=== PATIENT | female | born 1990 | race Two or more races ===

== ENCOUNTER 2024-07-09 14:37 | Emergency (ER) | payer MEDICAID, SELFPAY ==
[2024-07-09 15:19] VITALS: BP 143/85; PULSE 86; RESP 16; TEMP 37; O2SAT 99
--- NOTE | 2024-07-09 15:26 | XR_ITS ---
Examination: Complete OB ultrasound, less than 14 weeks, transabdominal Date and time of exam: July 09, 2024 1633 hrs. Indications: Vaginal bleeding beginning 9 days ago at Technique: Obstetrical ultrasound images less than 14 weeks performed via transabdominal imaging Findings: Uterus 9.2 x 5.4 x 6.3 cm Intrauterine gestational sac 2.8 cm corresponds to 7 week 6 day gestational age No pole No cardiac activity Right ovary 2.9 cm arterial flow Left ovary 3.4 cm arterial flow 10 mm follicular cyst Impression: Empty intrauterine gestational sac corresponding to 7 week 6 day gestational age No pole, recommend transvaginal pelvic sonography follow-up
--- NOTE | 2024-07-09 15:26 | PD.EDRME ---
Rapid Medical Screening Exam [facility] [place] Arrival date/time: 07/09/24 14:37 34-year-old female with no known medical history presents to the emergency room with a chief complaint of lower pelvic pain and vaginal spotting. Patient is currently a G5, P4. Patient denies any dysuria or hematuria. I have greeted and performed a focused initial assessment of this patient. A comprehensive ED assessment and evaluation of the patient, analysis of all test results, and completion of the medical decision making process will be conducted by additional ED providers. Chief Complaint: Abdominal Pain Vital signs: Vital Signs Temperature 98.6 F 07/09/24 15:19 Pulse Rate 86 07/09/24 15:19 Respiratory Rate 16 07/09/24 15:19 Blood Pressure 143/85 H 07/09/24 15:19 Pulse Oximetry (%) 99 07/09/24 15:19 Oxygen Delivery Method Room Air 07/09/24 15:19 Vital signs reviewed by provider: Yes
[2024-07-09 16:11] LABS: Collection Type, Urine Clean Catch; RBC,Urine 0 /hpf (0-3); Squamous Epithelial Cell,Urine 0 /hpf (0-5)
[2024-07-09 16:13] LABS: Basophils # (Auto) 0.1 Thou/mm3 (0.0-0.2); Basophils % (Auto) 1 % (0-2.5); Eosinophils # (Auto) 0.3 Thou/mm3 (0.0-0.5); Eosinophils % (Auto) 4 % (0-10); Hematocrit 42.3 % (36.0-46.0); Hemoglobin 14.8 g/dL (12.0-16.0); Immature Granulocytes % (Auto) 0 % (0-0); Immature Granulocytes Auto 0.03 Thou/mm3 (0.00-0.00); Lymphocytes # (Auto) 1.9 Thou/mm3 (1.0-4.8); Lymphocytes % (Auto) 22 % (10-50); Mean Corpuscular Hemoglobin 31.3 pg (25.0-35.0); Mean Corpuscular Volume 89 fL (80-100); Monocytes # (Auto) 0.6 Thou/mm3 (0.0-0.8); Monocytes % (Auto) 7 % (0-12); Neutrophils # (Auto) 5.7 Thou/mm3 (1.8-7.7); Neutrophils % (Auto) 66 % (37-80); Nucleated Red Blood Cell % 0 /100 WBC (0); Platelet Count 287 Thou/mm3 (140-440); Red Blood Count 4.73 Miln/mm3 (4.00-5.20); White Blood Count 8.5 Thou/mm3 (3.6-11.0)
[2024-07-09 16:26] LABS: Bilirubin,Urine Negative (Negative); Blood,Urine 1+ (Negative); Clarity,Urine Clear (Clear/Hazy); Color,Urine Colorless (Lt Yel-Yel); Glucose, Urine Negative (Negative); Ketones,Urine Negative (Negative); Leukocyte Esterase,Urine Negative (Negative); Nitrite,Urine Negative (Negative); PH,Urine 6.5 (5.0-7.0); Protein,Urine Negative (Neg - Trace); Specific Gravity,Urine 1.005 (1.001-1.035); Urobilinogen,Urine Negative mg/dL (0.0-1.0); WBC,Urine < 1 /hpf (0-5)
[2024-07-09 16:38] LABS: Alanine Aminotransferase 14 U/L (10-49); Albumin, Serum 4.7 gm/dL (3.5-5.0); Albumin/Globulin Ratio 1.7 (1.2-2.2); Alkaline Phosphatase 67 U/L (46-116); Anion Gap 11 (7-16); Aspartate Amino Transferase 17 U/L (0-34); BUN/Creatinine Ratio 14 Ratio (12-20); Bilirubin,Total 0.3 mg/dL (0.3-1.2); Blood Urea Nitrogen 10 mg/dL (9-23); Calcium 9.3 mg/dL (8.3-10.6); Calcium (Corrected) 9.3 mg/dL (8.5-10.1); Carbon Dioxide 25.1 mMol/L (20.0-31.0); Chloride 104 mMol/L (98-107); Creatinine (Component) 0.7 mg/dL (0.6-1.3); Estimated Creatinine Clearance 90.8 mL/min (>60); Globulin 2.8 gm/dL (2.3-3.5); Glucose 106 mg/dL (74-106); Osmolality,Calculated 278 (275-295); Potassium 3.6 mMol/L (3.4-5.1); Sodium 140 mMol/L (136-145); Total Protein 7.5 gm/dL (5.7-8.2); eGFR > 60 See Note
[2024-07-09 16:57] LABS: Beta HCG,Quantitative 5398 mIU/mL (<5.0)
[2024-07-09 18:27] VITALS: BP 145/84; PULSE 80; RESP 16; TEMP 36.8; O2SAT 100
--- NOTE | 2024-07-09 18:48 | EDNOTE_ITS ---
<Statement entered by Nupur Cabrera MD - 07/10/24 05:30> As co-signing physician, I was present and available for consult prn. I concur with the plan and care as documented by the midlevel provider. ED Abdominal Pain RME/HPI General Chief Complaint: Abdominal Pain Stated complaint: ABD PAIN X 9 DAYS; TYLENOL 0700 Time seen by provider: 07/09/24 18:14 Arrival date/time: 07/09/24 14:37 34-year-old female approximately 7 weeks G5, presents emergency department complaining of vaginal spotting and lower abdominal cramping that is been ongoing for over a week. Patient denies any fever, chills, vomiting, dysuria, or any other associated symptoms. Source: patient Mode of arrival: ambulatory Limitations: no limitations RME / HPI RME / HPI narrative: 07/09/24 14:37 34-year-old female with no known medical history presents to the emergency room with a chief complaint of lower pelvic pain and vaginal spotting. Patient is currently a G5, P4. Patient denies any dysuria or hematuria. I have greeted and performed a focused initial assessment of this patient. A comprehensive ED assessment and evaluation of the patient, analysis of all test results, and completion of the medical decision making process will be conducted by additional ED providers. Related Data Home Medications ?Medication ?Instructions ?Recorded ?Confirmed PNV CMB#95/FERROUS FUMARATE/FA 1 tab PO QDAY #0 tabs 0 06/20/13 07/16/19 ( MULTIVITAMINS TABLET) Allergies Allergy/AdvReac Type Severity Reaction Status Date / Time No Known Allergies Allergy Unknown Verified 07/09/24 14:41 Review of Systems Review of Systems Systems Reviewed: All systems reviewed, normal except as documented Constitutional Constitutional: Reports system reviewed and no additional complaints, except as documented, Denies body ache(s), Denies chills and Denies fever(s) Eyes Eyes: Reports system reviewed and no additional complaints, except as documented and Denies change in vision ENT Ears, Nose, Mouth, and Throat: Reports system reviewed and no additional complaints, except as documented, Denies disequilibrium, Denies dizziness, Denies sore throat and Denies vertigo Cardiovascular Cardiovascular: Reports system reviewed and no additional complaints, except as documented, Denies chest pain and Denies dyspnea Respiratory Respiratory: Reports system reviewed and no additional complaints, except as documented, Denies chest congestion, Denies cough and Denies dyspnea Gastrointestinal Gastrointestinal: Reports system reviewed and no additional complaints, except as documented, Reports abdominal pain, Denies nausea and Denies vomiting Genitourinary Genitourinary: Reports abnormal vaginal bleeding Musculoskeletal Musculoskeletal: Reports system reviewed and no additional complaints, except as documented, Denies abnormal gait and Denies arthralgias Integumentary/Breasts Skin/Breast: Reports system reviewed and no additional complaints, except as documented, Denies erythema, Denies rash and Denies wounds Neurologic Neurologic: Reports system reviewed and no additional complaints, except as documented, Denies abnormal gait, Denies disequilibrium, Denies dizziness and Denies vertigo Past Medical History Past Medical History NEUROLOGIC: Negative Neurological Disorders CARDIAC: Negative Cardiac Disorders or Congestive Heart Failure RESPIRATORY: Negative Chronic Obstructive Pulmonary Disease (COPD) GASTROINTESTINAL: Negative Gastrointestinal Disorders, Hepatitis or Colorectal Cancer GENITOURINARY: Negative Genitourinary Disorders, Renal Disease or Prostate Cancer REPRODUCTIVE: Negative Breast Cancer or Testicular Cancer MUSCULOSKELETAL: Negative Musculoskeletal Disorders or Bone Cancer ENDOCRINE: Negative Endocrine Disorders, Diabetes Mellitus Type 1 or Diabetes Mellitus Type 2 HEMATOLOGIC: Negative Blood Disorders OTHER HISTORY: Negative Autoimmune Disease, Blood Transfusions, MRSA, VRSA, Vancomycin-Resistant Enterococci, Human Immunodeficiency Virus (HIV), Chicken Pox, Measles, Mumps, Rubella ([place] Measles), Pertussis, Clostridium Difficile, Cancer, Breast Cancer, Cervical Cancer, Colorectal Cancer, Lung Cancer, Ovarian Cancer, Prostate Cancer or Testicular Cancer Family History FAMILY HISTORY: Negative Family Psychiatric Problems, Family Respiratory Disorders, Family Cardiac Disorders, Family Gastrointestinal Problems, Family Cancer, Family Surgery or Family Anesthesia Reaction Surgical History SURGICAL: Negative Endocrine Surgery, Ear Surgery, Abdominal Surgery, Nephrectomy, Joint Replacement, Neurologic Surgery, Mastectomy or Secti on Social History SMOKING STATUS: Never smoker SECOND HAND EXPOSURE: No ED Exam General Limitations: Present no limitations General appearance: Present alert and in no apparent distress Head Head exam: Present atraumatic Eye Eye exam: Present normal appearance, PERRL and EOMI ENT ENT exam: Present normal exam, normal oropharynx and mucous membranes moist Neck Neck exam: Present normal inspection, full ROM and trachea midline Chest Chest inspection: Present normal inspection and symmetric chest wall rise Respiratory Respiratory exam: Present normal lung sounds bilaterally Cardiovascular Cardiovascular exam: Present regular rate, normal rhythm and normal heart sounds Abdominal Exam Abdominal exam: Present soft and normal bowel sounds Extremities Exam Extremities exam: Present normal inspection and full ROM Back Exam Back exam: Present normal inspection and full ROM Neurological Exam Neurological exam: Present alert, oriented X3 and CN II-XII intact Psychiatric Psychiatric exam: Present normal affect and normal mood Skin Skin exam: Present warm, dry, intact and normal color Course Quality Measures none Orders Category Date Time Status US OB <= 14 weeks fetus Stat Exams 07/09/24 15:26 Completed ABO/RH Type Stat Lab 07/09/24 15:48 Completed Beta HCG,Quantitative Stat Lab 07/09/24 15:48 Completed CBC Stat Lab 07/09/24 15:48 Completed CMP [Comprehensive Metabolic Panel] Stat Lab 07/09/24 15:48 Completed UA [Urinalysis] Stat Lab 07/09/24 15:52 Completed Vital Signs Vital signs: Vital Signs Temperature 98.6 F 07/09/24 15:19 Pulse Rate 86 07/09/24 15:19 Respiratory Rate 16 07/09/24 15:19 Blood Pressure 143/85 H 07/09/24 15:19 Pulse Oximetry (%) 99 07/09/24 15:19 Oxygen Delivery Method Room Air 07/09/24 15:19 99% room air within normal limits Abdominal Pain MDM MDM Narrative MDM Narrative:: 34-year-old female approximately 7 weeks G5, presents emergency department complaining of vaginal spotting and lower abdominal cramping that is been ongoing for over a week. Patient denies any fever, chills, vomiting, dysuria, or any other associated symptoms. CBC was unremarkable for any leukocytosis with stable hemoglobin of 14.8. CMP was unremarkable for any gross electro abnormalities or elevated LFTs. Beta-hCG 5398. Ultrasound impression: Uterus 9.2 x 5.4 x 6.3 cm Intrauterine gestational sac 2.8 cm corresponds to 7 week 6 day gestational age No pole No cardiac activity Right ovary 2.9 cm arterial flow Left ovary 3.4 cm arterial flow 10 mm follicular cyst Patient appears nontoxic and is hemodynamically stable. Instructed patient to have close follow-up with [facility] and return immediately to emergency department for any increased bleeding, increased pain, vomiting, or any worsening symptom. Patient data External records reviewed:: [facility] previous records Clinical information provided by:: patient Social determinants that could affect healthcare access:: none Patient has the following chronic illnesses:: None How is presenting disease/condition affected by chronic disease/condition?: no chronic disease Evaluation data The following diagnostics were reviewed and interpreted by me:: lab results and radiology exam(s) Lab and/or radiology exams considered but not ordered:: Ordered Interpretation Summary: Interpreted by me Medications / Prescriptions Medications or Prescriptions considered but not ordered:: N/A Medication administrations:: N/A Consultations Consultation(s) initiated? (list below): No Diagnosis Differential diagnosis abdominal pain: abdominal pain, acute appendicitis, calculus of kidney, constipation, diverticulitis, endometriosis, gastroenteritis, pancreatitis, small bowel obstruction and other (Threatened , inevitable , missed ,) Most likely diagnosis given after review of the tests above:: Vaginal bleeding affecting early Admission Indicated Admission indicated?: not indicated Admission Request Was there a request for admission?: No Disposition Plan Disposition Plan: Discharge Discharge Attestation Discharge Attestation: The patient and all family members were given an opportunity to ask questions and understood the discharge instructions. Discharge instructions specifically effects, indications for sooner follow up or return to the emergency department, and the expected course of current diagnosis. Patient condition: Stable Discharge Plan Plan Patient Disposition: HOME (Self Care) Disposition Comment: Stable Prescriptions/Referrals Prescriptions/Med Rec: No Action PNV CMB#95/FERROUS FUMARATE/FA ( MULTIVITAMINS TABLET) 1 EACH tablet 1 tab PO QDAY Qty: 0 Referrals: Ranulfo Vitale MD [Primary Care Provider] - In 1 week Problem List Clinical Impression: Vaginal bleeding affecting early Patient/Caregiver Discharge Instructions Discharge Activity: activity as tolerated Education Materials: Bleeding During Early Additional Instructions: Pelvic rest until you see your [facility]. Take Tylenol as needed for pain. Drink plenty of fluids and stay hydrated. Follow-up with [facility] in 2 to 3 days. Return to the emergency department for any increased bleeding, increased pain, worsening symptoms or as needed. Print Language: Serbian Stand Alone Forms: [employer] Award Info., Patient Portal Info Letter PA/REGULATORY AFFAIRS STRATEGY SPECIALIST Supervising Physician PA/REGULATORY AFFAIRS STRATEGY SPECIALIST Supervising Physician: Dr. Cabrera
== END 2024-07-09 18:56 | disposition home or self-care (01) ==
PROVIDERS: Nurse Practitioner Family; Emergency Provider Emergency Medicine; PCP Family Medicine
DX: O20.9 Hemorrhage in early pregnancy, unspecified (principal); Z3A.01 Less than 8 weeks gestation of pregnancy
CPT/HCPCS: 36415; 76801; 80053; 81001; 84702; 85025; 86900; 86901; 99284

== ENCOUNTER 2025-02-04 12:39 | Emergency (ER) | payer MEDICAID, SELFPAY ==
[2025-02-04 12:49] VITALS: BP 155/86; PULSE 79; RESP 18; TEMP 36.9; O2SAT 99
--- NOTE | 2025-02-04 13:00 | PD.EDVAGBL ---
ED OB Contraction Preg RMI/HPI General Chief complaint: Abdominal Pain Stated complaint: ABD PAIN/HIP PAIN FOR 5 DAYS Time Seen by Provider: 02/04/25 12:58 Source: patient, RN notes reviewed and old records reviewed Arrival date/time: 02/04/25 12:39 Mode of arrival: ambulatory Limitations: no limitations RME / HPI RME / HPI Narrative: 35yof presents to ED for 5-day history of generalized pelvic cramping radiating to lower back. Patient reports vaginal bleeding the past 2 days. She had a positive home test earlier this week but was seen in clinic this morning with a negative test there. No fever, nausea/vomiting, dysuria or vaginal discharge reported. Patient took OTC pain relievers yesterday with some relief, no medications or treatments today. LMP 01/06/2025. Related Data Home Medications ?Medication ?Instructions ?Recorded ?Confirmed PNV CMB#95/FERROUS FUMARATE/FA 1 tab PO QDAY #0 tabs 06/20/13 07/16/19 ( MULTIVITAMINS TABLET) Previous Rx's ?Medication ?Instructions ?Recorded ibuprofen 600 mg tablet 600 mg PO Q6H PRN pain #20 tabs 02/04/25 methocarbamol 500 mg tablet 1,000 mg (2 x 500 mg) PO Q8H PRN 02/04/25 pain #20 tabs Allergies Allergy/AdvReac Type Severity Reaction Status Date / Time No Known Allergies Allergy Unknown Verified 02/04/25 12:44 Review of Systems Review of Systems Systems Reviewed: All systems reviewed, normal except as documented Constitutional Constitutional: Denies chills and Denies fever(s) Gastrointestinal Gastrointestinal: Denies nausea and Denies vomiting Genitourinary Genitourinary: Denies dysuria, Denies flank pain, Denies hematuria, Reports pelvic pain and Denies vaginal discharge Comments: Reports vaginal bleeding Past Medical History Surgical History OTHER SURGICAL HX: denies pshx Social History SMOKING STATUS: Never smoker SUBSTANCE USE: does not use ALCOHOL: Never Past Medical History Comments PMH COMMENT: denies pmhx ED Exam General Limitations: Present no limitations General appearance: Present alert and in no apparent distress Head Head exam: Present atraumatic and normocephalic Eye Eye exam: Present normal appearance, PERRL and EOMI ENT ENT exam: Present normal exam and mucous membranes moist Neck Neck exam: Present normal inspection and full ROM Chest Chest inspection: Present normal inspection and symmetric chest wall rise Respiratory Respiratory exam: Present normal lung sounds bilaterally; Absent respiratory distress Cardiovascular Cardiovascular exam: Present regular rate and normal rhythm Abdominal Exam Abdominal exam: Present soft; Absent distention, tenderness, guarding or rebound Extremities Exam Extremities exam: Present normal inspection and full ROM Back Exam Back exam: Absent CVA tenderness (R) or CVA tenderness (L) Neurological Exam Neurological exam: Present alert and oriented X3 Psychiatric Psychiatric exam: Present normal affect and normal mood Skin Skin exam: Present warm, dry, intact and normal color Course Quality Measures none Orders Category Date Time Status Beta HCG,Quantitative Stat Lab 02/04/25 13:15 Completed CBC Stat Lab 02/04/25 13:15 Completed CMP [Comprehensive Metabolic Panel] Stat Lab 02/04/25 13:15 Completed HCG Qualitative,Urine Stat Lab 02/04/25 13:11 Completed UA [Urinalysis] Stat Lab 02/04/25 13:11 Completed Acetaminophen Tab [Tylenol ES Tab] Med 02/04/25 12:58 Discontinued 1,000 mg PO X1 ONE Vital Signs Vital signs: Vital Signs Temperature 98.5 F 02/04/25 12:49 Pulse Rate 79 02/04/25 12:49 Respiratory Rate 18 02/04/25 12:49 Blood Pressure 155/86 H 02/04/25 12:49 Pulse Oximetry (%) 99 02/04/25 12:49 Oxygen Delivery Method Room Air 02/04/25 12:49 Vaginal Bleeding MDM Narrative MDM Narrative: 35yof presents to ED for 5-day history of generalized pelvic cramping radiating to lower back. Patient reports vaginal bleeding the past 2 days. She had a positive home test earlier this week but was seen in clinic this morning with a negative test there. No fever, nausea/vomiting, dysuria or vaginal discharge reported. Patient took OTC pain relievers yesterday with some relief, no medications or treatments today. LMP 01/06/2025. ED workup reassuring. Urine test is negative with very low hCG quant of 11. Suspect patient had chemical resulting in positive home test. Recommended close follow-up with PCP. Pain mgmt prn. Stable for discharge, RTED precautions given. Patient data External records reviewed:: [facility] previous records (07/09/24 ED visit for vaginal bleeding in early ) Clinical information provided by:: patient Social determinants that could affect healthcare access:: other (specify) (acculturation difficulty) Patient has the following chronic illnesses:: none How is presenting disease/condition affected by chronic disease/condition?: no chronic disease Evaluation data The following diagnostics were reviewed and interpreted by me:: lab results and radiology exam(s) Lab and/or radiology exams considered but not ordered:: CT abd/pelvis: do not suspect kidney stone or pyelo. No abdominal/flank tenderness on exam Interpretation Summary: Negative upreg Hcg quant 11 No leukocytosis No anemia UA -leuks/+blood (vaginal bleeding) Medications / Prescriptions Medications or Prescriptions considered but not ordered:: no antibiotics recommended at this time Medication administrations:: Medication Administration History Discontinued Medications Acetaminophen (Acetaminophen 500 Mg Tablet) 1,000 mg PO X1 ONE Stop: 02/04/25 12:59 Last Admin: 02/04/25 13:07 Dose: 1,000 mg Documented By: ANEL above medication administered in ED Consultations Consultation(s) initiated? (list below): No Diagnosis Vaginal Bleeding Differential Diagnosis: other (dysmenorrhea, , abnormal vaginal bleeding, UTI) Most likely diagnosis given after review of the tests above:: dysmenorrhea Admission Indicated Admission indicated?: not indicated Admission Request Was there a request for admission?: No Disposition Plan Disposition Plan: Discharge Discharge Attestation Discharge Attestation: The patient and all family members were given an opportunity to ask questions and understood the discharge instructions. Discharge instructions specifically effects, indications for sooner follow up or return to the emergency department, and the expected course of current diagnosis. Patient condition: Stable Discharge Plan Plan Patient Disposition: HOME (Self Care) Patient condition on transfer: Stable Prescriptions/Referrals Prescriptions/Med Rec: New ibuprofen 600 mg tablet 600 mg PO Q6H PRN (Reason: pain) Qty: 20 0RF methocarbamol 500 mg tablet 1,000 mg PO Q8H PRN (Reason: pain) Qty: 20 0RF No Action PNV CMB#95/FERROUS FUMARATE/FA ( MULTIVITAMINS TABLET) 1 EACH tablet 1 tab PO QDAY Qty: 0 Referrals: Ranulfo Vitale MD [Primary Care Provider, Family Practice] - In 1 week Problem List Clinical Impression: Dysmenorrhea, Negative test Patient/Caregiver Discharge Instructions Education Materials: ED MENSTRUAL CRAMPING Print Language: Albanian Stand Alone Forms: [employer] Info., Patient Portal Info Letter PA/MANAGER MATERIALS MANAGEMENT Supervising Physician PA/MANAGER MATERIALS MANAGEMENT Supervising Physician: Quirino
[2025-02-04] MEDS: ACETAMINOPHEN 500 MG TABLET 1000 MG PO (13:07)
[2025-02-04 13:32] LABS: Basophils # (Auto) 0.1 Thou/mm3 (0.0-0.2); Basophils % (Auto) 1 % (0-2.5); Eosinophils # (Auto) 0.2 Thou/mm3 (0.0-0.5); Eosinophils % (Auto) 2 % (0-10); Hematocrit 42.9 % (36.0-46.0); Hemoglobin 14.6 g/dL (12.0-16.0); Immature Granulocytes Auto 0.01 Thou/mm3 (0.00-0.00); Lymphocytes # (Auto) 2.4 Thou/mm3 (1.0-4.8); Lymphocytes % (Auto) 27 % (10-50); Mean Corpuscular HGB Conc 34.0 g/dl (31.0-37.0); Mean Corpuscular Hemoglobin 31.3 pg (25.0-35.0); Mean Corpuscular Volume 92 fL (80-100); Monocytes # (Auto) 0.4 Thou/mm3 (0.0-0.8); Monocytes % (Auto) 5 % (0-12); Neutrophils # (Auto) 5.7 Thou/mm3 (1.8-7.7); Neutrophils % (Auto) 65 % (37-80); Nucleated Red Blood Cell # 0.00 Thou/mm3 (0.00-0.00); Nucleated Red Blood Cell % 0 /100 WBC (0); Platelet Count 303 Thou/mm3 (140-440); RDW Standard Deviation 43.8 fL (36.4-46.3); Red Blood Count 4.67 Miln/mm3 (4.00-5.20); White Blood Count 8.7 Thou/mm3 (3.6-11.0)
[2025-02-04 13:41] LABS: Collection Type, Urine Clean Catch
[2025-02-04 13:53] LABS: Bilirubin,Urine Negative (Negative); Blood,Urine 3+ (Negative); Color,Urine Lt-Yellow (Lt Yel-Yel); Glucose, Urine Negative (Negative); Ketones,Urine Negative (Negative); Leukocyte Esterase,Urine Negative (Negative); Nitrite,Urine Negative (Negative); PH,Urine 5.5 (5.0-7.0); Protein,Urine Negative (Neg - Trace); RBC,Urine 39 /hpf (0-3); Specific Gravity,Urine 1.009 (1.001-1.035); Squamous Epithelial Cell,Urine < 1 /hpf (0-5); Urobilinogen,Urine Negative mg/dL (0.0-1.0); WBC,Urine 1 /hpf (0-5)
[2025-02-04 13:57] LABS: Clarity,Urine Hazy (Clear/Hazy)
[2025-02-04 13:59] LABS: HCG Qualitative,Urine Negative
[2025-02-04 14:09] LABS: Alanine Aminotransferase 10 U/L (10-49); Albumin, Serum 4.6 gm/dL (3.5-5.0); Albumin/Globulin Ratio 1.8 (1.2-2.2); Alkaline Phosphatase 61 U/L (46-116); Anion Gap 7 (7-16); Aspartate Amino Transferase 15 U/L (0-34); BUN/Creatinine Ratio 8 Ratio (12-20); Beta HCG,Quantitative 11 mIU/mL (<5.0); Bilirubin,Total 0.5 mg/dL (0.3-1.2); Blood Urea Nitrogen < 5 mg/dL (9-23); Calcium 9.4 mg/dL (8.3-10.6); Calcium (Corrected) 9.4 mg/dL (8.5-10.1); Carbon Dioxide 27.7 mMol/L (20.0-31.0); Chloride 106 mMol/L (98-107); Creatinine (Component) 0.6 mg/dL (0.6-1.3); Globulin 2.6 gm/dL (2.3-3.5); Glucose 115 mg/dL (74-106); Osmolality,Calculated 279 (275-295); Potassium 3.7 mMol/L (3.4-5.1); Sodium 141 mMol/L (136-145); Total Protein 7.2 gm/dL (5.7-8.2); eGFR > 60 See Note
== END 2025-02-04 15:38 | disposition home or self-care (01) ==
PROVIDERS: Physician Assistant; Emergency Provider Emergency Medicine; PCP Family Medicine
DX: Z32.02 Encounter for pregnancy test, result negative (principal); N94.6 Dysmenorrhea, unspecified
CPT/HCPCS: 36415; 80053; 81001; 81025; 84702; 85025; 99283; A9270